=== PATIENT | female | born 1950 | race Caucasian/White ===

== ENCOUNTER 2016-05-13 09:43 | Outpatient (CLI) | payer MEDICARE, OTHER | END 2016-05-13 09:44 | disposition home or self-care (01) | DX: E11.9 Type 2 diabetes mellitus without complications (principal); D64.9 Anemia, unspecified ==

== ENCOUNTER 2016-07-12 12:58 | Outpatient (CLI) | payer MEDICARE, OTHER | END 2016-07-12 12:59 | disposition home or self-care (01) | DX: M85.88 Other specified disorders of bone density and structure, other site (principal) ==

== ENCOUNTER 2016-07-12 13:00 | Outpatient (CLI) | payer MEDICARE, OTHER | END 2016-07-12 13:01 | disposition home or self-care (01) | DX: Z12.31 Encounter for screening mammogram for malignant neoplasm of breast (principal) ==

== ENCOUNTER 2016-07-12 16:57 | Outpatient (CLI) | payer MEDICARE, OTHER | END 2016-07-12 16:58 | disposition home or self-care (01) | DX: N84.1 Polyp of cervix uteri (principal); M85.88 Other specified disorders of bone density and structure, other site; Z78.0 Asymptomatic menopausal state ==

== ENCOUNTER 2016-08-28 15:29 | Outpatient (CLI) | payer MEDICARE, OTHER | END 2016-08-28 15:30 | disposition home or self-care (01) | DX: S83.242A Other tear of medial meniscus, current injury, left knee, initial encounter (principal); M17.12 Unilateral primary osteoarthritis, left knee; M25.762 Osteophyte, left knee ==

== ENCOUNTER 2016-10-31 14:50 | Outpatient (CLI) | payer MEDICARE, OTHER ==
[2016-10-31 19:42] LABS: CALCIUM 9.4 mg/dL (8.5-10.3); POTASSIUM 4.4 mmol/L (3.5-5.0)
[2016-10-31 20:11] LABS: HEMOGLOBIN A1C 0.62 g/dL
== END 2016-10-31 14:51 | disposition home or self-care (01) ==
LOC: LAB.WCP 14:50
PROVIDERS: ATTEND Physician Assistant Medical
DX: E11.9 Type 2 diabetes mellitus without complications (principal)
CPT/HCPCS: 36415; 80048; 83036

== ENCOUNTER 2017-01-29 13:55 | Outpatient (CLI) | payer MEDICARE, OTHER | END 2017-01-29 13:56 | disposition home or self-care (01) | LOC: LAB.WCP 13:55 | PROVIDERS: ATTEND Physician Assistant Medical | DX: N39.0 Urinary tract infection, site not specified (principal) | CPT/HCPCS: 87086 ==

== ENCOUNTER 2017-06-09 08:00 | Outpatient (CLI) | payer MEDICARE, OTHER ==
[2017-06-09 19:53] LABS: BASOPHILS % (AUTO) 0.3 %; EOSINOPHILS # (AUTO) 0.2 10^3/uL (0.0-0.7); EOSINOPHILS % (AUTO) 2.1 %; HGB - HEMOGLOBIN 12.8 g/dL (12.0-16.0); LYMPHOCYTES % (AUTO) 27.1 %; MEAN CORPUSCULAR HEMOGLOBIN 27.5 pg (27.0-31.0); MEAN CORPUSCULAR HGB CONC 31.9 g/dL (32.0-36.0); MEAN CORPUSCULAR VOLUME 86.3 fL (81.0-99.0); MONOCYTES # (AUTO) 0.4 10^3/uL (0.0-1.0); MONOCYTES % (AUTO) 5.5 %; NEUTROPHILS # (AUTO) 4.8 10^3/uL (1.5-6.6); PLT - PLATELET COUNT 198 10^3/uL (130-450); RED BLOOD COUNT 4.66 10^6/uL (4.20-5.40); RED CELL DISTRIBUTION WIDTH 13.2 % (12.0-15.0); WHITE BLOOD COUNT 7.4 x10^3/uL (4.8-10.8)
[2017-06-09 20:24] LABS: ALBUMIN/GLOBULIN RATIO 1.3 (1.0-2.2); ALKALINE PHOSPHATASE 51 IU/L (42-121); ALT ALANINE AMINOTRANSFERASE 15 IU/L (10-60); AST ASPARTATE AMINOTRANSFERASE 22 IU/L (10-42); BILIRUBIN,TOTAL 0.4 mg/dL (0.2-1.0); BUN - BLOOD UREA NITROGEN 17 mg/dL (6-20); CALCIUM 9.1 mg/dL (8.5-10.3); CARBON DIOXIDE - CO2 29 mmol/L (21-32); CHLORIDE 104 mmol/L (101-111); CHOL/HDL RATIO 2.3 (<4.4); CHOLESTEROL 141 mg/dL; GFR - MDRD 56 (>89); GLUCOSE 97 mg/dL (70-100); HDL CHOLESTEROL 61 mg/dL; LDL CHOLESTEROL,CALCULATED 64 mg/dL; SODIUM 139 mmol/L (135-145); TOTAL PROTEIN 7.1 g/dL (6.7-8.2); VLDL CHOLESTEROL 16 mg/dL
[2017-06-09 20:57] LABS: HEMOGLOBIN A1C 0.6 g/dL; HEMOGLOBIN A1C % 6.1 % (4.6-6.2)
== END 2017-06-09 08:01 | disposition home or self-care (01) ==
LOC: LAB.WCP 08:00
PROVIDERS: ATTEND Physician Assistant Medical
DX: E11.9 Type 2 diabetes mellitus without complications (principal); K21.9 Gastro-esophageal reflux disease without esophagitis
CPT/HCPCS: 36415; 80053; 80061; 82043; 83036; 83721; 85025

== ENCOUNTER 2017-06-17 08:00 | Outpatient (CLI) | payer MEDICARE, OTHER | END 2017-06-17 08:01 | disposition home or self-care (01) | LOC: LAB.R 08:00 | PROVIDERS: ATTEND Physician Assistant Medical | DX: N39.0 Urinary tract infection, site not specified (principal) | CPT/HCPCS: 87077; 87086 ==

== ENCOUNTER 2017-09-09 08:00 | Outpatient (CLI) | payer MEDICARE, OTHER | END 2017-09-09 08:01 | disposition home or self-care (01) | LOC: LAB.R 08:00 | PROVIDERS: ATTEND Physician Assistant Medical | DX: N39.0 Urinary tract infection, site not specified (principal) | CPT/HCPCS: 87086 ==

== ENCOUNTER 2017-09-18 17:32 | Emergency (ER) | payer MEDICARE, OTHER ==
[2017-09-18 17:41] VITALS: BP 165/96
--- NOTE | 2017-09-18 18:39 | ED Physician Documentation ---
PD HPI LOWER EXT INJURY - Stated complaint Stated Complaint: R LEG PX - Chief complaint Chief Complaint: Ext Problem - History obtained from History obtained from: Patient - History of Present Illness PD HPI LOW EXT INJURY LOCATION: Other (Without specific injury or recent travel to 66-year-old woman with no history of DVT or PE presents with 4-5 days of somewhat painful calf pain and foot swelling on the right. There is no associated chest pain or trouble breathing.) Review of Systems Constitutional: denies: Fever, Chills Cardiac: denies: Chest pain / pressure, Palpitations Respiratory: denies: Dyspnea, Cough PD PAST MEDICAL HISTORY - Past Medical History Cardiovascular: Hypertension, High cholesterol Respiratory: Asthma, Sleep apnea, CPAP use Endocrine/Autoimmune: Type 2 diabetes GI: GERD, Colon polyps, Hepatitis Psych: Depression, Panic attacks, ADD/ADHD, Claustrophobia Musculoskeletal: Fibromyalgia - Past Surgical History General: Cholecystectomy Ortho: Shoulder arthroplasty, Other HEENT: Tonsil/Adenoidectomy - Present Medications Home Medications: Ambulatory Orders Medication Instructions Recorded Confirmed Albuterol Oral Soln 2 mg PO Q6H PRN 10/08/16 09/18/17 Albuterol Sulf [Ventolin Hfa 1 - 2 puffs INH Q4HR PRN 10/08/16 09/18/17 Inhaler] Albuterol Sulfate [Proair Hfa 1 - 2 puffs INH Q4H PRN 10/08/16 09/18/17 Inhaler] Amlodipine Besylate 5 mg PO DAILY 10/08/16 09/18/17 Calcium Carbonate/Vitamin D3 1 each PO DAILY 10/08/16 09/18/17 [Calcium 600 + Vit D 400 Tablet] Celecoxib [Celebrex] 200 mg PO DAILY 10/08/16 09/18/17 Epinephrine [Epipen 2-Keny] 0.3 mg IJ ONCE PRN 10/08/16 09/18/17 Fluticasone [Flonase] 1 sprays LEON DAILY 10/08/16 09/18/17 Fluticasone/Salmeterol [Advair 1 each IH BID 10/08/16 09/18/17 250-50 Diskus] Ipratropium/Albuterol [Combivent 4 gm IH QID 10/08/16 09/18/17 Respimat] Lisinopril 40 mg PO DAILY 10/08/16 09/18/17 Metformin HCl [Glucophage Xr] 750 mg PO BID 10/08/16 09/18/17 Montelukast [Singulair] 10 mg PO QPM 10/08/16 09/18/17 Oxycodone HCl [Oxycontin] 20 mg PO BID 10/08/16 09/18/17 Rizatriptan Benzoate [Maxalt Security Orderly] 10 mg PO ONCE PRN 10/08/16 09/18/17 Simvastatin [Zocor] 20 mg PO DAILY 10/08/16 09/18/17 Zolpidem Tartrate [Ambien] 10 mg PO DAILY PRN 10/08/16 09/18/17 Omeprazole 1 tab PO DAILY 09/18/17 09/18/17 Rivaroxaban [Xarelto] 15 mg PO BID #42 tablet 09/18/17 - Allergies Allergies/Adverse Reactions: Allergies Allergy/AdvReac Type Severity Reaction Status Date / Time bee venom protein (honey bee) Allergy Anaphylaxis Unverified 09/18/17 18:38 Iodinated Contrast- Oral and Allergy Unknown Unverified 09/18/17 18:38 IV Dye [Iodinated Contrast Media - Oral and] levofloxacin [From Levaquin] Allergy Unknown Unverified 09/18/17 18:38 Sulfa (Sulfonamide AdvReac Unknown Unverified 09/18/17 18:38 Antibiotics) - Social History Does the pt drink ETOH?: No Does the pt have substance abuse?: No - Family History Family history: reports: Non contributory PD ED PE NORMAL - Vitals Vital signs reviewed: Yes - General General: Alert and oriented X 3, No acute distress - HEENT HEENT: PERRL, EOMI - Cardiac Cardiac: RRR, No murmur - Respiratory Respiratory: No respiratory distress, Clear bilaterally - Abdomen Abdomen: Non tender - Extremities Extremities: Other (She has marked asymmetric edema of the right leg up to the mid calf but not further, there is no popliteal or thigh tenderness. Good pedal pulses and perfusion.) - Neuro Neuro: Alert and oriented X 3, Normal speech Results - Vitals Vitals: Vital Signs - 24 hr 09/18/17 17:39 Temperature 36.6 C Heart Rate 99 Respiratory 16 Rate Blood Pressure 165/96 H O2 Saturation 99 Oxygen O2 Source Room air - Labs Labs: Laboratory Tests 09/18/17 09/18/17 09/18/17 18:46 18:46 18:46 WBC 6.7 RBC 4.24 Hgb 11.8 L Hct 37.1 MCV 87.3 MCH 27.9 MCHC 32.0 RDW 13.8 Plt Count 194 MPV 7.8 L Neut # 4.4 Lymph # 1.8 Metcalfe # 0.4 Eos # 0.2 Baso # 0.0 Absolute Nucleated RBC 0.00 Nucleated RBC % 0.0 PT 12.4 INR 1.1 Sodium 137 Potassium 4.3 Chloride 102 Carbon Dioxide 28 Anion Gap 7.0 BUN 19 Creatinine 0.7 Estimated GFR (MDRD) 84 L Glucose 137 H Calcium 9.3 - Rads (name of study) RLE DVt scna Radiology: EMP read contemporaneously (Positive DVT in the right popliteal and PT V.) PD MEDICAL DECISION MAKING - ED course ED course: This is a 66-year-old woman with unprovoked right lower extremity DVT. Spoke with NA Waggoner transportation economics teacher for her NA Ross and agreed on Xarelto. She will need hypercoagulable and malignancy workup given that it was unprovoked. Departure - Departure Disposition: Home, Self Care Clinical Impression: Right leg DVT Qualifiers: Affected thrombotic vein of extremity: popliteal Chronicity: acute Qualified Code(s): I82.431 - Acute embolism and thrombosis of right popliteal vein Condition: Good Record reviewed to determine appropriate education?: Yes Instructions: ED DVT, Rivaroxaban oral tablets Prescriptions: Rivaroxaban [Xarelto] 15 mg PO BID #42 tablet Comments: Follow-up with NA Ross, she will need to write you a prescription for ongoing Xarelto after the first 3 weeks, after the first 3 weeks it is only once a day. She will also likely want to do further testing to see why you had this unprovoked DVT.
[2017-09-18 19:02] LABS: BASOPHILS % (AUTO) 0.3 %; EOSINOPHILS # (AUTO) 0.2 10^3/uL (0.0-0.7); EOSINOPHILS % (AUTO) 2.9 %; HGB - HEMOGLOBIN 11.8 g/dL (12.0-16.0); LYMPHOCYTES # (AUTO) 1.8 10^3/uL (1.5-3.5); MEAN CORPUSCULAR HEMOGLOBIN 27.9 pg (27.0-31.0); MEAN CORPUSCULAR VOLUME 87.3 fL (81.0-99.0); MEAN PLATELET VOLUME 7.8 fL (7.9-10.8); MONOCYTES # (AUTO) 0.4 10^3/uL (0.0-1.0); MONOCYTES % (AUTO) 5.7 %; NEUTROPHILS # (AUTO) 4.4 10^3/uL (1.5-6.6); NEUTROPHILS % (AUTO) 65.1 %; PLT - PLATELET COUNT 194 10^3/uL (130-450); RED BLOOD COUNT 4.24 10^6/uL (4.20-5.40); RED CELL DISTRIBUTION WIDTH 13.8 % (12.0-15.0); WHITE BLOOD COUNT 6.7 x10^3/uL (4.8-10.8)
[2017-09-18 19:07] LABS: CALCIUM 9.3 mg/dL (8.5-10.3); CREATININE 0.7 mg/dL (0.4-1.0)
[2017-09-18 19:08] LABS: INR 1.1 (0.8-1.2); PT - PROTHROMBIN TIME 12.4 secs (9.9-12.6)
[2017-09-18] MEDS ORDERED: RIVAROXABAN 15 MG TABLET PO STA (19:59)
--- NOTE | 2017-09-18 20:20 | Ultrasound Preliminary Report ---
Exam: US DUPLEX EXT VEINS RIGHT IMPRESSION: 1. Study limited by body habitus. 2. Nonocclusive thrombus in the right posterior tibial and mid and proximal popliteal vein. Occlusive thrombus in the distal popliteal vein. 3. Soft tissue edema in the right leg noted. RADIA The above findings were discussed with MIGUEL A Cee by Dr. Melyssa No at 20:19 hrs on 09/18/17. SITE ID: [id number]
--- NOTE | 2017-09-18 21:12 | Ultrasound Report ---
EXAM: RIGHT LOWER EXTREMITY VENOUS ULTRASOUND EXAM DATE: 09/18/2017 07:16 PM. CLINICAL HISTORY: Leg swelling. COMPARISON: None. TECHNIQUE: Real-time sonographic vascular imaging was performed by the drink mixer through the lower extremity utilizing both color-flow and Doppler spectral analysis. Multiple sales representative supervisor static giuliana ges were saved for review. FINDINGS: Common Femoral Vein (CFV): Normal. CFV-GSV Junction: Normal. Profunda Femoral Vein (PFV): Normal. Femoral Vein (FV) Prox: Normal. Femoral Vein (FV) Mid: Not well seen. Femoral Vein (FV) Dist: Not well seen. Popliteal Vein: Nonocclusive thrombus in the mid to proximal segment of the popliteal vein. Distal po pliteal vein occlusion. Nonocclusive thrombus in the proximal to mid right posterior tibial vein. Per [place] veins are not seen. Posterior Tibial Veins: Normal. Peroneal Veins: Normal. Contralateral Side CFV: Normal. Other: Study is limited due to body habitus and edema. IMPRESSION: 1. Study limited by body habitus. 2. Nonocclusive thrombus in the right posterior tibial and mid and proximal popliteal vein. Occlusive thrombus in the distal popliteal vein. 3. Soft tissue edema in the right leg noted. RADIA The above findings were discussed with MIGUEL A Cee by Dr. Melyssa No at 20:19 hrs on 09/18/17. Referring Provider Line: [phone] SITE ID: [id number]
== END 2017-09-18 20:19 | disposition home or self-care (01) ==
LOC: ED 17:32
DX: I82.441 Acute embolism and thrombosis of right tibial vein (principal); I82.431 Acute embolism and thrombosis of right popliteal vein; I10 Essential (primary) hypertension; E11.9 Type 2 diabetes mellitus without complications; Z79.84 Long term (current) use of oral hypoglycemic drugs
CPT/HCPCS: 36415; 80048; 85025; 85610; 93971; 99283; 99284; A9270

== ENCOUNTER 2017-10-13 08:00 | Outpatient (CLI) | payer MEDICARE, OTHER ==
[2017-10-13 19:43] LABS: BASOPHILS % (AUTO) 0.4 %; EOSINOPHILS # (AUTO) 0.2 10^3/uL (0.0-0.7); EOSINOPHILS % (AUTO) 2.3 %; HGB - HEMOGLOBIN 12.2 g/dL (12.0-16.0); LYMPHOCYTES # (AUTO) 2.3 10^3/uL (1.5-3.5); LYMPHOCYTES % (AUTO) 32.1 %; MEAN CORPUSCULAR HEMOGLOBIN 28.5 pg (27.0-31.0); MEAN CORPUSCULAR HGB CONC 31.8 g/dL (32.0-36.0); MEAN CORPUSCULAR VOLUME 89.4 fL (81.0-99.0); MEAN PLATELET VOLUME 9.4 fL (7.9-10.8); MONOCYTES # (AUTO) 0.5 10^3/uL (0.0-1.0); MONOCYTES % (AUTO) 6.5 %; NEUTROPHILS # (AUTO) 4.3 10^3/uL (1.5-6.6); NEUTROPHILS % (AUTO) 58.7 %; PLT - PLATELET COUNT 218 10^3/uL (130-450); RED BLOOD COUNT 4.29 10^6/uL (4.20-5.40); RED CELL DISTRIBUTION WIDTH 13.7 % (12.0-15.0); WHITE BLOOD COUNT 7.3 x10^3/uL (4.8-10.8)
[2017-10-13 19:56] LABS: ALBUMIN 3.7 g/dL (3.2-5.5); ALBUMIN/GLOBULIN RATIO 1.1 (1.0-2.2); BILIRUBIN,TOTAL 0.4 mg/dL (0.2-1.0); CREATININE 1.1 mg/dL (0.4-1.0); TOTAL PROTEIN 7.2 g/dL (6.7-8.2)
== END 2017-10-13 08:01 | disposition home or self-care (01) ==
LOC: LAB.WCP 08:00
PROVIDERS: ATTEND Physician Assistant
DX: N39.0 Urinary tract infection, site not specified (principal)
CPT/HCPCS: 36415; 80053; 85025; 87077; 87086; 87181

== ENCOUNTER 2018-01-06 17:11 | Outpatient (CLI) | payer MEDICARE, OTHER | END 2018-01-06 17:12 | LOC: LAB.R 17:11 | PROVIDERS: ATTEND Physician Assistant Medical | DX: N39.0 Urinary tract infection, site not specified (principal) | CPT/HCPCS: 87086 ==

== ENCOUNTER 2018-07-01 13:57 | Outpatient (CLI) | payer MEDICARE, OTHER ==
[2018-07-01 19:25] LABS: HB2 TOTAL 13.6 g/dL; HEMOGLOBIN A1C 0.53 g/dL; HEMOGLOBIN A1C % 5.7 % (4.6-6.2)
[2018-07-01 19:27] LABS: CHOL/HDL RATIO 2.4 (<4.4); CHOLESTEROL 164 mg/dL; HDL CHOLESTEROL 68 mg/dL; LDL CHOLESTEROL,CALCULATED 78 mg/dL; LDL/HDL RATIO 1.1 (<4.4); VLDL CHOLESTEROL 18 mg/dL
== END 2018-07-01 13:58 | disposition home or self-care (01) ==
LOC: LAB.WCP 13:57
PROVIDERS: ATTEND Physician Assistant Medical
DX: E78.5 Hyperlipidemia, unspecified (principal); E11.9 Type 2 diabetes mellitus without complications
CPT/HCPCS: 36415; 80061; 83036; 83721

== ENCOUNTER 2018-11-12 14:15 | Emergency (ER) | payer MEDICARE, OTHER ==
[2018-11-12 14:25] VITALS: BP 143/87
--- NOTE | 2018-11-12 16:10 | XRAY Report ---
Reason: fall, back pain Procedure Date: 11/12/2018 Accession Number: [id number] / [id number] Procedure: XR - Lumbar Spine 2 View CPT Code: FULL RESULT: EXAM: LUMBOSACRAL SPINE RADIOGRAPHY EXAM DATE: 11/12/2018 03:52 PM. CLINICAL HISTORY: Fall, back pain. COMPARISONS: None. TECHNIQUE: 3 views. FINDINGS: Bones: No fractures or bone lesions. Facets: Bilateral facet arthropathy from L3-S1 levels. Degenerative grade 1 anterolisthesis of L4 over L5. Intervertebral spacing device is seen at L5-S1. Sacroiliac Joints: Unremarkable. Soft Tissues: Normal. The visualized bowel gas pattern is normal. IMPRESSION: No acute displaced fracture, no vertebral body height loss. Grade 1 degenerative anterolisthesis of L4 over L5. RADIA
--- NOTE | 2018-11-12 16:12 | XRAY Report ---
Reason: fall, back pain Procedure Date: 11/12/2018 Accession Number: [id number] / [id number] Procedure: XR - Thoracic Spine 2 View CPT Code: FULL RESULT: EXAM: THORACIC SPINE RADIOGRAPHY EXAM DATE: 11/12/2018 03:52 PM. CLINICAL HISTORY: Fall, back pain. COMPARISON: None. TECHNIQUE: 2 views. FINDINGS: Alignment: Normal. No spondylolisthesis or scoliosis. Bones: No fractures or bone lesions. Disks: Normal. Disk heights are maintained. Soft Tissues: Normal. The visualized lungs and cardiomediastinal silhouette are normal. IMPRESSION: Well aligned thoracic spine with no acute displaced fracture. No vertebral body height loss. RADIA
[2018-11-12] MEDS ORDERED: CHERRY SYRUP 10 ML UDC PO ONE (18:00)
[2018-11-12] MEDS ORDERED: DEXAMETHASONE 10 MG/ML VIAL PO STA (18:00)
[2018-11-12] MEDS ORDERED: KETOROLAC 60 MG/2 ML VIAL IM STA (18:00)
--- NOTE | 2018-11-12 18:03 | ED Physician Documentation ---
PD HPI BACK PAIN - Stated complaint Stated Complaint: BACK/HIP PX - Chief complaint Chief Complaint: Back Pain - History obtained from History obtained from: Patient, Family - History of Present Illness Timing - onset: How many weeks ago (2) Timing - duration: Weeks (2) Timing - details: Gradual onset, Still present Location: Lower, Right Quality: Pain, Spasm, Sharp Associated symptoms: No: Fever, Weakness, Numbness, Incontinent of urine, Unable to urinate, Hematuria, Incontinent of stool Improves with: Rest, Position, Meds Worsened by: Movement, Lifting Similar symptoms before: Diagnosis (lumbar pain) Recently seen: Not recently seen - Additional information Additional information: 67-year-old female with a prior history of lumbar disc disease fell about 5 feet from a ladder about 2 weeks ago. She fell onto her right side and onto her back. About 1 week ago she began to have pain radiating from her back around to her groin. She denied any saddle anesthesia denies any difficulty with her bowel or bladder. She has had pain into the right hip which is especially a concern when she bears weight. Review of Systems Constitutional: denies: Fever Nose: denies: Congestion Throat: denies: Sore throat Cardiac: denies: Chest pain / pressure Respiratory: denies: Dyspnea, Cough GI: denies: Abdominal Pain, Nausea, Vomiting : denies: Dysuria PD PAST MEDICAL HISTORY - Past Medical History Past Medical History: No Cardiovascular: Hypertension, High cholesterol Respiratory: Asthma, Sleep apnea, CPAP use Neuro: None Endocrine/Autoimmune: Type 2 diabetes GI: GERD, Colon polyps, Hepatitis SKIVER HEEL TAP: None HEENT: None Psych: Depression, Panic attacks, ADD/ADHD, Claustrophobia Musculoskeletal: Fibromyalgia - Past Surgical History Past Surgical History: Yes General: Cholecystectomy Ortho: Shoulder arthroplasty, Other HEENT: Tonsil/Adenoidectomy - Present Medications Home Medications: Ambulatory Orders Medication Instructions Recorded Confirmed Albuterol Oral Soln 2 mg PO Q6H PRN 10/08/16 09/18/17 Albuterol Sulf [Ventolin Hfa 1 - 2 puffs INH Q4HR PRN 10/08/16 09/18/17 Inhaler] Albuterol Sulfate [Proair Hfa 1 - 2 puffs INH Q4H PRN 10/08/16 09/18/17 Inhaler] Amlodipine Besylate 5 mg PO DAILY 10/08/16 09/18/17 Calcium Carbonate/Vitamin D3 1 each PO DAILY 10/08/16 09/18/17 [Calcium 600 + Vit D 400 Tablet] Celecoxib [Celebrex] 200 mg PO DAILY 10/08/16 09/18/17 EPINEPHrine [Epipen 2-Keny] 0.3 mg IJ ONCE PRN 10/08/16 09/18/17 Fluticasone [Flonase] 1 sprays LEON DAILY 10/08/16 09/18/17 Fluticasone/Salmeterol [Advair 1 each IH BID 10/08/16 09/18/17 250-50 Diskus] Ipratropium/Albuterol [Combivent 4 gm IH QID 10/08/16 09/18/17 Respimat] Lisinopril 40 mg PO DAILY 10/08/16 09/18/17 Metformin HCl [Glucophage Xr] 750 mg PO BID 10/08/16 09/18/17 Montelukast [Singulair] 10 mg PO QPM 10/08/16 09/18/17 Oxycodone HCl [Oxycontin] 20 mg PO BID 10/08/16 09/18/17 Rizatriptan Benzoate [Maxalt Carpenter Maintenance] 10 mg PO ONCE PRN 10/08/16 09/18/17 Simvastatin [Zocor] 20 mg PO DAILY 10/08/16 09/18/17 Zolpidem Tartrate [Ambien] 10 mg PO DAILY PRN 10/08/16 09/18/17 Omeprazole 1 tab PO DAILY 09/18/17 09/18/17 Rivaroxaban [Xarelto] 15 mg PO BID #42 tablet 09/18/17 Cyclobenzaprine [Flexeril] 10 mg PO TID PRN #20 tablet 11/12/18 Hydrocodone/Acetaminophen 1 - 2 each PO Q6H PRN #14 tablet 11/12/18 [Hydrocodon-Acetaminophen 5-325] - Allergies Allergies/Adverse Reactions: Allergies Allergy/AdvReac Type Severity Reaction Status Date / Time bee venom protein (honey bee) Allergy Anaphylaxis Verified 11/12/18 14:25 Iodinated Contrast- Oral and Allergy Unknown Verified 11/12/18 14:25 IV Dye [Iodinated Contrast Media - Oral and] levofloxacin [From Levaquin] Allergy Unknown Verified 11/12/18 14:25 Sulfa (Sulfonamide AdvReac Unknown Verified 11/12/18 14:25 Antibiotics) - Social History Does the pt smoke?: No Smoking Status: Never smoker Does the pt drink ETOH?: No Does the pt have substance abuse?: No - Immunizations Immunizations are current?: Yes - POLST Patient has POLST: No PD ED PE NORMAL - Vitals Vital signs reviewed: Yes (hypertensive) - General General: Alert and oriented X 3, Well developed/nourished, Other (apears to be in pain staying off of the right hip ) - HEENT HEENT: Atraumatic, PERRL - Neck Neck: Supple, no meningeal sign - Respiratory Respiratory: No respiratory distress - Back Back: No CVA TTP, No spinal TTP, Other (There is some tenderness to the paraspinous muscles to the right lower lumbar spine extending in the sciatic notch and around to the front. ) - Derm Derm: Normal color, Warm and dry, No rash - Extremities Extremities: No deformity, No edema - Neuro Neuro: Alert and oriented X 3, program administrator 2-12 intact, No motor deficit, No sensory deficit, Normal speech Eye Opening: Spontaneous Motor: Obeys Commands Verbal: Oriented GCS Score: 15 - Psych Psych: Normal mood, Normal affect Results - Vitals Vitals: Vital Signs - 24 hr 11/12/18 14:19 Temperature 36.4 C L Heart Rate 78 Respiratory 19 Rate Blood Pressure 143/87 H O2 Saturation 97 Oxygen O2 Source Room air - Rads (name of study) lumbar spine Radiology: Prelim report reviewed (Impression: No acute displaced fracture no vertebral body height loss. Grade 1 degenerative anterolisthesis of L4 over L5), EMP read indepedently, See rad report thoracic spine Radiology: Prelim report reviewed (Impression: Well aligned thoracic spine with no acute displaced fracture. No vertebral body height loss.), EMP read indepedently, See rad report hip Radiology: EMP read indepedently (no obvious fracture) PD MEDICAL DECISION MAKING - ED course Complexity details: reviewed old records, reviewed results, re-evaluated patient, considered differential, d/w patient ED course: 67-year-old female with a remote fall and pain in the right hip appears to have referred pain from her back and she is administered dexamethasone and Toradol we will will place her on some pain medication a muscle relaxant and we have obtained a picture of her hip as this appears to be the area she has the most pain. She has no evidence of compression fracture on x-ray examination of her lumbar and thoracic spine. Departure - Departure Disposition: 01 Home, Self Care Clinical Impression: Sciatica Qualifiers: Laterality: right Qualified Code(s): M54.31 - Sciatica, right side Condition: Stable Instructions: ED Sciatica Follow-Up: Becki Ross PA-C [Primary Care Provider] - Prescriptions: Cyclobenzaprine [Flexeril] 10 mg PO TID PRN #20 tablet PRN Reason: Spasms Hydrocodone/Acetaminophen [Hydrocodon-Acetaminophen 5-325] 1 - 2 each PO Q6H PRN #14 tablet PRN Reason: pain
--- NOTE | 2018-11-12 18:49 | XRAY Report ---
Reason: fall hip pain Procedure Date: 11/12/2018 Accession Number: [id number] / [id number] Procedure: XR - Hip w/Pelvis 2-3V RT CPT Code: FULL RESULT: EXAM: PELVIS AND RIGHT HIP RADIOGRAPHY EXAM DATE: 11/12/2018 06:16 PM. CLINICAL HISTORY: Fall hip pain. COMPARISON: None. TECHNIQUE: Pelvis and right hip, each 1 view. FINDINGS: Bones: Normal. No fractures or bone lesion. Postoperative changes at the lumbosacral level. Joints: Normal. No dislocation. The hip joint space is preserved. Soft Tissues: Unremarkable. IMPRESSION: No acute disease. RADIA
== END 2018-11-12 18:50 | disposition home or self-care (01) ==
LOC: ED 14:15
DX: M54.31 Sciatica, right side (principal); I10 Essential (primary) hypertension; E11.9 Type 2 diabetes mellitus without complications; Z79.84 Long term (current) use of oral hypoglycemic drugs
CPT/HCPCS: 72070; 72100; 73502; 96372; 99284; A9270

== ENCOUNTER 2018-12-08 13:41 | Outpatient (CLI) | payer MEDICARE, OTHER ==
[2018-12-08 19:15] LABS: BASOPHILS % (AUTO) 0.4 %; EOSINOPHILS # (AUTO) 0.3 10^3/uL (0.0-0.7); EOSINOPHILS % (AUTO) 4.3 %; HGB - HEMOGLOBIN 12.2 g/dL (12.0-16.0); LYMPHOCYTES # (AUTO) 1.7 10^3/uL (1.5-3.5); LYMPHOCYTES % (AUTO) 24.7 %; MEAN CORPUSCULAR HEMOGLOBIN 28.6 pg (27.0-31.0); MEAN CORPUSCULAR HGB CONC 31.3 g/dL (32.0-36.0); MEAN CORPUSCULAR VOLUME 91.5 fL (81.0-99.0); MONOCYTES # (AUTO) 0.4 10^3/uL (0.0-1.0); NEUTROPHILS # (AUTO) 4.4 10^3/uL (1.5-6.6); NEUTROPHILS % (AUTO) 64.2 %; PLT - PLATELET COUNT 213 10^3/uL (130-450); RED BLOOD COUNT 4.26 10^6/uL (4.20-5.40); RED CELL DISTRIBUTION WIDTH 12.7 % (12.0-15.0); WHITE BLOOD COUNT 6.8 x10^3/uL (4.8-10.8)
[2018-12-08 19:38] LABS: ALBUMIN 3.8 g/dL (3.2-5.5); ALBUMIN/GLOBULIN RATIO 1.1 (1.0-2.2); ALKALINE PHOSPHATASE 51 IU/L (42-121); ALT ALANINE AMINOTRANSFERASE 14 IU/L (10-60); AST ASPARTATE AMINOTRANSFERASE 17 IU/L (10-42); BILIRUBIN,TOTAL 0.5 mg/dL (0.2-1.0); BUN - BLOOD UREA NITROGEN 23 mg/dL (6-20); CALCIUM 9.4 mg/dL (8.5-10.3); CARBON DIOXIDE - CO2 26 mmol/L (21-32); CHLORIDE 103 mmol/L (101-111); CHOL/HDL RATIO 2.6 (<4.4); CHOLESTEROL 150 mg/dL; CREATININE 0.9 mg/dL (0.4-1.0); GFR - MDRD 63 (>89); GLUCOSE 102 mg/dL (70-100); HDL CHOLESTEROL 58 mg/dL; LDL CHOLESTEROL,CALCULATED 72 mg/dL; LDL/HDL RATIO 1.2 (<4.4); SODIUM 142 mmol/L (135-145); TOTAL PROTEIN 7.3 g/dL (6.7-8.2); VLDL CHOLESTEROL 20 mg/dL
[2018-12-08 20:18] LABS: HEMOGLOBIN A1C 0.59 g/dL; HEMOGLOBIN A1C % 6.3 % (4.6-6.2)
== END 2018-12-08 23:59 | disposition home or self-care (01) ==
LOC: LAB.WCP 13:41
PROVIDERS: ATTEND Physician Assistant Medical
DX: I10 Essential (primary) hypertension (principal); E11.9 Type 2 diabetes mellitus without complications
CPT/HCPCS: 36415; 80053; 80061; 83036; 83721; 84443; 85025

== ENCOUNTER 2018-12-14 14:41 | Outpatient (CLI) | payer MEDICARE, OTHER ==
[2018-12-14 18:41] LABS: BASOPHILS % (AUTO) 0.4 %; EOSINOPHILS # (AUTO) 0.2 10^3/uL (0.0-0.7); EOSINOPHILS % (AUTO) 2.2 %; HGB - HEMOGLOBIN 12.8 g/dL (12.0-16.0); LYMPHOCYTES # (AUTO) 2.1 10^3/uL (1.5-3.5); LYMPHOCYTES % (AUTO) 21.6 %; MEAN CORPUSCULAR HEMOGLOBIN 27.6 pg (27.0-31.0); MEAN CORPUSCULAR HGB CONC 30.2 g/dL (32.0-36.0); MEAN CORPUSCULAR VOLUME 91.4 fL (81.0-99.0); MEAN PLATELET VOLUME 10.7 fL (7.9-10.8); MONOCYTES # (AUTO) 0.5 10^3/uL (0.0-1.0); MONOCYTES % (AUTO) 5.2 %; NEUTROPHILS # (AUTO) 6.9 10^3/uL (1.5-6.6); PLT - PLATELET COUNT 263 10^3/uL (130-450); RED BLOOD COUNT 4.64 10^6/uL (4.20-5.40); RED CELL DISTRIBUTION WIDTH 12.8 % (12.0-15.0); WHITE BLOOD COUNT 9.9 x10^3/uL (4.8-10.8)
[2018-12-14 19:59] LABS: % IRON SATURATION 12 % (20-50); IRON 49 ug/dL (28-170); TOTAL IRON BINDING CAPACITY 396 ug/dL (250-450); TRANSFERRIN 283 mg/dL (192-382)
== END 2018-12-14 23:59 | disposition home or self-care (01) ==
LOC: LAB.WCP 14:41
PROVIDERS: ATTEND Physician Assistant Medical
DX: K62.5 Hemorrhage of anus and rectum (principal)
CPT/HCPCS: 36415; 82728; 83540; 84466; 85025

== ENCOUNTER 2019-01-01 08:00 | Outpatient (CLI) | payer MEDICARE, OTHER | END 2019-01-01 23:59 | disposition home or self-care (01) | LOC: LAB.WCP 08:00 | PROVIDERS: ATTEND Physician Assistant Medical | DX: Z53.9 Procedure and treatment not carried out, unspecified reason (principal) ==

== ENCOUNTER 2019-03-12 13:50 | Outpatient (CLI) | payer MEDICARE, OTHER ==
[2019-03-12 19:38] LABS: CALCIUM 9.1 mg/dL (8.5-10.3)
[2019-03-12 19:58] LABS: HB2 TOTAL 12.1 g/dL; HEMOGLOBIN A1C 0.48 g/dL; HEMOGLOBIN A1C % 5.8 % (4.6-6.2)
== END 2019-03-12 23:59 | disposition home or self-care (01) ==
LOC: LAB.WCP 13:50
PROVIDERS: ATTEND Physician Assistant Medical
DX: E11.9 Type 2 diabetes mellitus without complications (principal)
CPT/HCPCS: 36415; 80048; 83036

== ENCOUNTER 2019-03-15 14:40 | Outpatient (CLI) | payer MEDICARE, OTHER | END 2019-03-15 23:59 | disposition home or self-care (01) | LOC: LAB.WCP 14:40 | PROVIDERS: ATTEND Physician Assistant Medical | DX: E11.9 Type 2 diabetes mellitus without complications (principal) | CPT/HCPCS: 36415; 84443 ==

== ENCOUNTER 2019-03-15 15:13 | Outpatient (CLI) | payer MEDICARE, OTHER ==
--- NOTE | 2019-03-15 16:18 | XRAY Report ---
Reason: LEFT SHOULDER IMPINGEMENT SYNDROME Procedure Date: 03/15/2019 Accession Number: [id number] / [id number] Procedure: WCP - Shoulder 2 View LT CPT Code: Final Report FULL RESULT: EXAM: LEFT SHOULDER RADIOGRAPHY EXAM DATE: 03/15/2019 03:13 PM. CLINICAL HISTORY: Left shoulder impingement syndrome. COMPARISON: None. TECHNIQUE: 2 views. FINDINGS: Bones: There has been prior arthroplasty of the left shoulder with a long stem humeral component. There is degenerative widening and sclerosis of the adjacent glenoid. Joints: Glenohumeral joint remains located. The acromioclavicular joint appears normal. Slightly down sloped morphology to the tip of the acromion with appearance of narrowing of the humeral acromial distance (4.5 mm measured from the tip of the acromion to the greater tuberosity). Soft tissues: The visualized hemithorax is unremarkable. No soft tissue swelling. IMPRESSION: 1. Status post left shoulder hemiarthroplasty. 2. Probable narrowing of the humeral acromial distance as the possible cause for impingement symptoms. RADIA
== END 2019-03-15 23:59 | disposition home or self-care (01) ==
LOC: DI.WCP 15:13
PROVIDERS: ATTEND Physician Assistant Medical
DX: M75.42 Impingement syndrome of left shoulder (principal); Z96.612 Presence of left artificial shoulder joint; E11.9 Type 2 diabetes mellitus without complications
CPT/HCPCS: 36415; 84443

== ENCOUNTER 2019-06-16 07:00 | Outpatient (CLI) | payer MEDICARE, OTHER ==
[2019-06-16 18:45] LABS: HEMOGLOBIN A1C 0.52 g/dL; HEMOGLOBIN A1C % 5.8 % (4.6-6.2)
[2019-06-16 18:51] LABS: CREATININE,URINE 309.5 mg/dL; MICROALBUM/CREATININE RATIO,UR 26.8 ug/mg (<30.0); MICROALBUMIN,URINE 8.3 mg/dL (0-300.0)
== END 2019-06-16 23:59 | disposition home or self-care (01) ==
LOC: LAB.WCP 07:00
PROVIDERS: ATTEND Physician Assistant Medical
DX: E11.9 Type 2 diabetes mellitus without complications (principal); F41.9 Anxiety disorder, unspecified; F90.0 Attention-deficit hyperactivity disorder, predominantly inattentive type; F51.04 Psychophysiologic insomnia; F32.9 Major depressive disorder, single episode, unspecified
CPT/HCPCS: 36415; 82043; 82570; 83036; 84443

== ENCOUNTER 2019-06-17 15:26 | Outpatient (CLI) | payer MEDICARE, OTHER ==
--- NOTE | 2019-06-18 08:44 | XRAY Report ---
Reason: RIGHT FOOT PAIN Procedure Date: 06/17/2019 Accession Number: [id number] / [id number] Procedure: WCP - Foot 3 View RT CPT Code: Final Report FULL RESULT: EXAM: RIGHT FOOT RADIOGRAPHY, 3 VIEWS EXAM DATE: 06/17/2019 03:26 PM. CLINICAL HISTORY: 68-year-old female post twisting injury right foot 3 weeks ago, with continued pain and swelling. COMPARISON: None. TECHNIQUE: Frontal, oblique and lateral views. FINDINGS: Bones: Normal. No fractures or bone lesions. Joints: Minor degenerative arthritic changes in the IP joints. No subluxations or joint effusion. Soft Tissues: Mild generalized soft tissue swelling. No soft tissue gas or foreign body. IMPRESSION: Mild soft tissue swelling. No fracture or joint injury. Minor osteoarthritic changes in the IP joints diffusely. RADIA
== END 2019-06-17 23:59 | disposition home or self-care (01) ==
LOC: DI.WCP 15:26
PROVIDERS: ATTEND Physician Assistant Medical
DX: M19.071 Primary osteoarthritis, right ankle and foot (principal)

== ENCOUNTER 2020-01-12 07:00 | Outpatient (CLI) | payer MEDICARE, OTHER | END 2020-01-12 23:59 | disposition home or self-care (01) | LOC: LAB.R 07:00 | PROVIDERS: ATTEND Family Medicine | DX: R30.0 Dysuria (principal) | CPT/HCPCS: 87086 ==

== ENCOUNTER 2020-07-26 10:15 | Outpatient (CLI) | payer MEDICARE, OTHER | END 2020-07-26 10:16 | disposition home or self-care (01) | LOC: DI 10:15 | PROVIDERS: ATTEND Physician Assistant Medical | DX: R01.1 Cardiac murmur, unspecified (principal); I34.0 Nonrheumatic mitral (valve) insufficiency | CPT/HCPCS: 93306 ==

== ENCOUNTER 2020-08-01 14:58 | Outpatient (CLI) | payer MEDICARE, OTHER ==
[2020-08-01 17:42] LABS: BASOPHILS % (AUTO) 0.7 %; EOSINOPHILS # (AUTO) 0.2 10^3/uL (0.0-0.7); EOSINOPHILS % (AUTO) 3.8 %; HCT - HEMATOCRIT 37.9 % (37.0-47.0); HGB - HEMOGLOBIN 11.6 g/dL (12.0-16.0); LYMPHOCYTES # (AUTO) 1.6 10^3/uL (1.5-3.5); LYMPHOCYTES % (AUTO) 29.1 %; MEAN CORPUSCULAR HEMOGLOBIN 28.1 pg (27.0-31.0); MEAN CORPUSCULAR HGB CONC 30.6 g/dL (32.0-36.0); MEAN CORPUSCULAR VOLUME 91.8 fL (81.0-99.0); MEAN PLATELET VOLUME 10.8 fL (7.9-10.8); MONOCYTES # (AUTO) 0.3 10^3/uL (0.0-1.0); MONOCYTES % (AUTO) 5.2 %; NEUTROPHILS # (AUTO) 3.4 10^3/uL (1.5-6.6); PLT - PLATELET COUNT 218 10^3/uL (130-450); RED BLOOD COUNT 4.13 10^6/uL (4.20-5.40); RED CELL DISTRIBUTION WIDTH 13.4 % (12.0-15.0); WHITE BLOOD COUNT 5.5 x10^3/uL (4.8-10.8)
[2020-08-01 18:09] LABS: ALBUMIN 3.9 g/dL (3.2-5.5); ALBUMIN/GLOBULIN RATIO 1.1 (1.0-2.2); ALKALINE PHOSPHATASE 56 IU/L (42-121); ALT ALANINE AMINOTRANSFERASE 19 IU/L (10-60); AST ASPARTATE AMINOTRANSFERASE 23 IU/L (10-42); BILIRUBIN,TOTAL 0.4 mg/dL (0.2-1.0); BUN - BLOOD UREA NITROGEN 17 mg/dL (6-20); CALCIUM 9.2 mg/dL (8.5-10.3); CARBON DIOXIDE - CO2 27 mmol/L (21-32); CHLORIDE 103 mmol/L (101-111); CHOL/HDL RATIO 2.5 (<4.4); CHOLESTEROL 157 mg/dL; CREATININE 0.9 mg/dL (0.4-1.0); GFR - MDRD 62 (>89); GLUCOSE 97 mg/dL (70-100); HDL CHOLESTEROL 63 mg/dL; LDL CHOLESTEROL,CALCULATED 75 mg/dL; LDL/HDL RATIO 1.2 (<4.4); POTASSIUM 4.4 mmol/L (3.5-5.0); SODIUM 138 mmol/L (135-145); TOTAL PROTEIN 7.4 g/dL (6.7-8.2); TRIGLYCERIDES 96 mg/dL; VLDL CHOLESTEROL 19 mg/dL
[2020-08-01 18:13] LABS: CRP - C-REACTIVE PROTEIN < 1.0 mg/dL (0-1.0); RHEUMATOID FACTOR NEGATIVE (Negative)
[2020-08-03 17:16] LABS: ANA SCREEN NEGATIVE (NEGATIVE)
== END 2020-08-01 23:59 | disposition home or self-care (01) ==
LOC: LAB.WCP 14:58
PROVIDERS: ATTEND Physician Assistant Medical
DX: E78.5 Hyperlipidemia, unspecified (principal); J45.909 Unspecified asthma, uncomplicated; M25.531 Pain in right wrist
CPT/HCPCS: 36415; 80053; 80061; 83721; 85025; 85651; 86038; 86140; 86225; 86430

== ENCOUNTER 2020-08-21 14:42 | Outpatient (CLI) | payer MEDICARE, OTHER ==
[2020-08-23 20:41] VITALS: BP 166/82
--- NOTE | 2020-08-23 20:41 | SLEEP CARE CONSULTATION ---
Information from patient questionnaire entered by Erika Painting. I have reviewed and concur with the information entered by Erika Painting. This document represents the service I personally performed and the decisions made by me, Saige Sullivan MD, [facility]. History of Present Illness Service Date and Time: 08/21/2020 1442 Reason for Visit: New patient, Previously diagnosed sleep apnea (severe - AHI - 35.6 in 2007), sleep apnea on CPAP therapy, Re-establish care (last seen 08/2012) Chief Complaint: reports: Other (Update supplies) Usual bedtime: 11 pm Time it takes to fall asleep: 60 minutes or so Snores at night: Yes Observed to quit breathing while asleep: Yes Sleeps alone due to snoring: No Number of times waking at night: 2 Reasons for waking at night: reports: Snoring, Gasping for air, Pain, Bathroom Toss, Turn, or Twitch while sleeping: Yes Recalls having dreams: Yes Usually gets out of bed at: 6-11 am Feels refreshed in the morning: Yes Morning headache: Yes (sometimes) Sleepy or fatigued during the day: No Ever fallen asleep while driving: No Takes day naps: Yes Prior sleep studies: Yes Year and Where: 2007 - [facility] Type of Sleep Study: Polysomnography Additional HPI information: HPI: Ms. Meza returned with her for follow up after last seen about 10 years ago. She was diagnosed here with severe obstructive sleep apnea- hypopnea (AHI of 35.6 and neeru oxygen saturation of 77%). She continues to use her old Respironics M-Series CPAP regularly. The credit card-type memory card cannot be downloaded. The pressure is set at 18 cmH2O. She does not have a heated humidifier. She wears a Respironics True Blue nasal mask. She gets her supplies through [facility]. - Parasomnia Symptoms Ever been unable to move upon waking from sleep: No Walks in sleep: Yes Talks in sleep: Yes Ever acted out dreams in sleep: Yes Ever felt weak in the knees when startled or emotional: Yes Bothered by creepy, crawly, restless sensations in legs: Yes (sometimes) Problems with memory or concentration: Yes Subjective Initial [place] Sleepiness Scale score: 17 (in 2007) Current [place] Sleepiness Scale score: 10 Past Medical History Past Medical History: reports: Hypertension, Claustrophobia, Diabetes, Arthritis, Anemia, Anxiety, Asthma, GERD Social History The patient's occupation is a Retired. Patient is and lives in [place]. Have you smoked in the past 12 months: No Alcohol use: No Caffeine use: Yes Caffeine amount and frequency: 1 cup every few days Family History Family history of sleep disordered breathing: Yes Family Hx Sleep Apnea: Mother: Sleep apnea - Untreated, Father: Sleep apnea - Untreated, Sibling: Sleep apnea - Untreated, Grandparent: Sleep apnea - Untreated, Other: Snoring (niece), Sleep apnea - Untreated Allergies and Home Medications Drug allergies reviewed: Yes Home medication list reviewed: Yes Review of Systems Weight gain over past 5 years: 15 Weight loss over past 5 years: 28 Cardiovascular: reports: high blood pressure Respiratory: reports: shortness of breath, wheeze, other (asthma) Gastrointestinal: reports: heartburn, other (IBC) Urinary: reports: incontinence, frequency Neurological: reports: headaches Psychiatric: reports: anxiety, claustrophobia Ear/Nose/Throat: reports: sinus problems, dry mouth/throat (when I sleep) Musculoskeletal: reports: joint pain, neck pain, back pain Immunologic: reports: sneezing, allergies to food or environment (bees) Physical Exam Vital signs obtained and entered by: Dr. Sullivan Blood Pressure: 166/82 Cuff size: regular Heart Rate: 75 O2 Saturation: 98 Height: 5 ft 5 in Weight: 230 lb Body Mass Index: 38.2 BMI Classification: Obese Neck circumference: 15 Mood/affect: Normal HEENT: No craniofacial malformation Impression and Plan IMPRESSION: 1. Obstructive Sleep Apnea-Hypopnea Syndrome, severe, with the patient continuing to have good treatment compliance (the actual compliance cannot be downloaded due her memory card being of the old style). She reports significant improvement on the treatment. Because the CPAP is now older than t he useful life of 5 years, I will order the patient a new one and make it an autoCPAP set between 12 and 18 cmH2O. She should look into the newer nasal masks. PLAN: 1. Prescription made for an autoCPAP, heated humidifier, and related supplies. 2. Attempt to lose some weight. 3. Try Respironics DreamWear nasal cushion mask and ResMed N30i mask. 4. Return for follow up after one month of using the CPAP. Follow up recommended for: Weight management Visit Type: In Office Other Participants: Spouse/Significant Other Time Spent with Patient (minutes): 15 Provider Statement: I spent 100% of the Face to Face Visit with the patient with greater than 50% spent counseling the patient and coordination of care.
== END 2020-08-21 14:43 | disposition home or self-care (01) ==
LOC: SC 14:42
PROVIDERS: ATTEND Internal Medicine Pulmonary Disease
DX: G47.33 Obstructive sleep apnea (adult) (pediatric) (principal); E66.9 Obesity, unspecified; Z68.38 Body mass index [BMI] 38.0-38.9, adult
CPT/HCPCS: 99202; G0463; 99212

== ENCOUNTER 2020-09-13 08:00 | Outpatient (CLI) | payer MEDICARE, OTHER ==
[2020-09-13 18:57] LABS: THYROID STIMULATING HORMONE 0.95 uIU/mL (0.34-5.60)
[2020-09-13 19:11] LABS: CREATININE,URINE 342.4 mg/dL; MICROALBUM/CREATININE RATIO,UR 76.2 ug/mg (<30.0); MICROALBUMIN,URINE 26.1 mg/dL (0-300.0)
[2020-09-13 19:58] LABS: ESTIMATED AVERAGE GLUCOSE 117 mg/dL (70-100); HEMOGLOBIN A1c% 5.7 % (4.27-6.07)
== END 2020-09-13 23:59 | disposition home or self-care (01) ==
LOC: LAB.WCP 08:00
PROVIDERS: ATTEND Physician Assistant Medical
DX: E11.9 Type 2 diabetes mellitus without complications (principal)
CPT/HCPCS: 36415; 82043; 82570; 83036; 84443

== ENCOUNTER 2020-10-03 08:00 | Outpatient (CLI) | payer MEDICARE, OTHER | END 2020-10-03 23:59 | disposition home or self-care (01) | LOC: LAB.N 08:00 | PROVIDERS: ATTEND Physician Assistant Medical | DX: R30.0 Dysuria (principal) | CPT/HCPCS: 87077; 87086; 87181 ==

== ENCOUNTER 2020-11-13 13:28 | Outpatient (CLI) | payer MEDICARE, OTHER ==
--- NOTE | 2020-11-13 16:31 | SLEEP CARE CONSULTATION ---
Information from patient questionnaire entered by Erika Painting. I have reviewed and concur with the information entered by Erika Painting. This document represents the service I personally performed and the decisions made by me, Saige Sullivan MD, [facility]. History of Present Illness Service Date and Time: 11/13/2020 1328 Previous diagnosis: Severe, Obstructive Sleep Apnea-Hypopnea Syndrome AHI: 35.6 (in 2007) Reason for follow up: first compliance after device update Equipment type: CPAP Equipment obtained from: Other ([facility]) Mask style: Nasal Prior sleep studies: Yes Year and Where: 2007 - [facility] Type of Sleep Study: Polysomnography HPI additional information: HPI: Ms. Meza returned with her for follow up after she was prescribed a new autoCPAP 2 months ago. She was diagnosed here with severe obstructive sleep apnea-hypopnea (AHI of 35.6 and neeru oxygen saturation of 77%). Her new device is a DreamStation 2 autoCPAP set at 12 18 cmH2O (her old machine was set at 18 cmH2O). The compliance report shows usage in 30 out of the past 30 night, averaging 9.7 hours a night. The residual AHI is 9.7. Average time in large leak per day is 5 minutes. The 90th percentile pressure is 17 cmH 2O. She wears a nasal mask. CPAP Compliance Data - Data Reviewed with Patient Average duration of nightly device use: 9 hr 42 min Compliance rate %: 100 Current pressure setting (cmH2O): 12-18 Humidity settin Heated hose settin Average residual AHI: 9.7 Average large leak: 4 min 58 sec Subjective Patient concerns: reports: nasal congestion, dry mouth, nose, throat Current pressure setting perceived as: comfortable Initial Craig Sleepiness Scale score: 17 (in 2007) Current Craig Sleepiness Scale score: 5 Allergies and Home Medications Drug allergies reviewed: Yes Home medication list reviewed: Yes Review of Systems Review of systems same as previous: Yes Physical Exam Height: 5 ft 5 in Weight: 225 lb Body Mass Index: 37.4 BMI Classification: Obese Impression and Plan IMPRESSION: 1. Obstructive Sleep Apnea-Hypopnea Syndrome, severe, with the patient doing well on her new device. The current pressure setting appears slightly ineffective but comfortable. I will raise the pressure a little. She would the auto OFF to be turned so that the machine would not keep on running while she goes to the bathroom at night. PLAN: 1. AutoCPAP raised to 14-20 cmH2O via the modem. Auto OFF turned on. 2. Attempt to lose some weight. 3. Try Respironics DreamWear nasal cushion mask and ResMed N30i mask. 4. Return for follow up in a year or earlier if there is any problem. Counseling Topics: Weight control Follow up with Sleep Care in: 1 year Visit Type: In Office Provider Statement: I spent 100% of the Face to Face Visit with the patient with greater than 50% spent counseling the patient and coordination of care.
== END 2020-11-13 13:29 | disposition home or self-care (01) ==
LOC: SC 13:28
PROVIDERS: ATTEND Internal Medicine Pulmonary Disease
DX: G47.33 Obstructive sleep apnea (adult) (pediatric) (principal); E66.9 Obesity, unspecified; Z68.37 Body mass index [BMI] 37.0-37.9, adult
CPT/HCPCS: 99212; G0463

== ENCOUNTER 2021-01-24 14:35 | Outpatient (CLI) | payer MEDICARE, OTHER ==
[2021-01-24 18:26] LABS: ALBUMIN/GLOBULIN RATIO 1.2 (1.0-2.2); ALKALINE PHOSPHATASE 49 IU/L (42-121); ALT ALANINE AMINOTRANSFERASE 15 IU/L (10-60); AST ASPARTATE AMINOTRANSFERASE 19 IU/L (10-42); BILIRUBIN,TOTAL 0.6 mg/dL (0.2-1.0); BUN - BLOOD UREA NITROGEN 16 mg/dL (6-20); CALCIUM 9.3 mg/dL (8.5-10.3); CARBON DIOXIDE - CO2 28 mmol/L (21-32); CHLORIDE 103 mmol/L (101-111); CHOL/HDL RATIO 3.3 (<4.4); CHOLESTEROL 218 mg/dL; CREATININE 0.9 mg/dL (0.4-1.0); GFR - MDRD 62 (>89); GLUCOSE 111 mg/dL (70-100); HDL CHOLESTEROL 67 mg/dL; LDL CHOLESTEROL,CALCULATED 133 mg/dL; POTASSIUM 4.7 mmol/L (3.5-5.0); SODIUM 140 mmol/L (135-145); TOTAL PROTEIN 7.3 g/dL (6.7-8.2); TRIGLYCERIDES 89 mg/dL; VLDL CHOLESTEROL 18 mg/dL
[2021-01-24 20:57] LABS: ESTIMATED AVERAGE GLUCOSE 126 mg/dL (70-100)
== END 2021-01-24 23:59 | disposition home or self-care (01) ==
LOC: LAB.WCP 14:35
PROVIDERS: ATTEND Physician Assistant Medical
DX: E11.9 Type 2 diabetes mellitus without complications (principal)
CPT/HCPCS: 36415; 80053; 80061; 83036; 83721

== ENCOUNTER 2021-04-18 14:33 | Outpatient (CLI) | payer MEDICARE, OTHER ==
[2021-04-18 18:15] LABS: ALBUMIN/GLOBULIN RATIO 1.2 (1.0-2.2); ALKALINE PHOSPHATASE 57 IU/L (42-121); ALT ALANINE AMINOTRANSFERASE 17 IU/L (10-60); AST ASPARTATE AMINOTRANSFERASE 20 IU/L (10-42); BILIRUBIN,TOTAL 0.3 mg/dL (0.2-1.0); BUN - BLOOD UREA NITROGEN 18 mg/dL (6-20); CALCIUM 9.2 mg/dL (8.5-10.3); CARBON DIOXIDE - CO2 27 mmol/L (21-32); CHLORIDE 101 mmol/L (101-111); CHOL/HDL RATIO 2.5 (<4.4); CHOLESTEROL 174 mg/dL; CREATININE 0.9 mg/dL (0.4-1.0); GFR - MDRD 62 (>89); GLUCOSE 106 mg/dL (70-100); HDL CHOLESTEROL 70 mg/dL; LDL CHOLESTEROL,CALCULATED 88 mg/dL; LDL/HDL RATIO 1.3 (<4.4); POTASSIUM 4.4 mmol/L (3.5-5.0); SODIUM 138 mmol/L (135-145); TOTAL PROTEIN 7.4 g/dL (6.7-8.2); TRIGLYCERIDES 79 mg/dL; VLDL CHOLESTEROL 16 mg/dL
[2021-04-18 20:42] LABS: ESTIMATED AVERAGE GLUCOSE 126 mg/dL (70-100)
== END 2021-04-18 23:59 | disposition home or self-care (01) ==
LOC: LAB.WCP 14:33
PROVIDERS: ATTEND Physician Assistant Medical
DX: E11.9 Type 2 diabetes mellitus without complications (principal)
CPT/HCPCS: 36415; 80053; 80061; 83036; 83721

== ENCOUNTER 2021-08-24 14:03 | Outpatient (CLI) | payer MEDICARE, OTHER ==
[2021-08-24 18:30] LABS: ALBUMIN 3.9 g/dL (3.2-5.5); ALBUMIN/GLOBULIN RATIO 1.1 (1.0-2.2); BILIRUBIN,TOTAL 0.3 mg/dL (0.2-1.0); CALCIUM 9.4 mg/dL (8.5-10.3); CREATININE 0.9 mg/dL (0.4-1.0); POTASSIUM 4.5 mmol/L (3.5-5.0); TOTAL PROTEIN 7.5 g/dL (6.7-8.2)
[2021-08-24 19:29] LABS: ESTIMATED AVERAGE GLUCOSE 123 mg/dL (70-100); HEMOGLOBIN A1c% 5.9 % (4.27-6.07)
== END 2021-08-24 14:04 | disposition home or self-care (01) ==
LOC: LAB.N 14:03
PROVIDERS: ATTEND Physician Assistant Medical
DX: E11.9 Type 2 diabetes mellitus without complications (principal)
CPT/HCPCS: 36415; 80053; 81599; 83036

== ENCOUNTER 2022-03-01 09:56 | Outpatient (CLI) | payer MEDICARE, OTHER ==
[2022-03-01 12:35] LABS: ALBUMIN 4.3 g/dL (3.2-5.5); ALBUMIN/GLOBULIN RATIO 1.2 (1.0-2.2); ALKALINE PHOSPHATASE 68 IU/L (42-121); ALT ALANINE AMINOTRANSFERASE 17 IU/L (10-60); AST ASPARTATE AMINOTRANSFERASE 19 IU/L (10-42); BILIRUBIN,TOTAL 0.4 mg/dL (0.2-1.0); BUN - BLOOD UREA NITROGEN 22 mg/dL (6-20); CALCIUM 9.8 mg/dL (8.5-10.3); CARBON DIOXIDE - CO2 31 mmol/L (21-32); CHLORIDE 99 mmol/L (101-111); CHOL/HDL RATIO 2.7 (<4.4); CHOLESTEROL 178 mg/dL; CREATININE 1.1 mg/dL (0.4-1.0); GFR - MDRD 49 (>89); GLUCOSE 119 mg/dL (70-100); HDL CHOLESTEROL 66 mg/dL; LDL CHOLESTEROL,CALCULATED 86 mg/dL; LDL/HDL RATIO 1.3 (<4.4); POTASSIUM 4.4 mmol/L (3.5-5.0); SODIUM 138 mmol/L (135-145); TRIGLYCERIDES 132 mg/dL; VLDL CHOLESTEROL 26 mg/dL
[2022-03-01 12:42] LABS: ESTIMATED AVERAGE GLUCOSE 131 mg/dL (70-100); HEMOGLOBIN A1c% 6.2 % (4.27-6.07)
== END 2022-03-01 09:57 | disposition home or self-care (01) ==
LOC: LAB.N 09:56
PROVIDERS: ATTEND Physician Assistant Medical
DX: E11.9 Type 2 diabetes mellitus without complications (principal)
CPT/HCPCS: 36415; 80053; 80061; 83036; 83721

== ENCOUNTER 2022-08-28 14:52 | Outpatient (CLI) | payer MEDICARE, OTHER ==
[2022-08-28 17:58] LABS: CALCIUM 9.5 mg/dL (8.5-10.3); POTASSIUM 4.4 mmol/L (3.5-5.0)
[2022-08-28 20:53] LABS: ESTIMATED AVERAGE GLUCOSE 134 mg/dL (70-100); HEMOGLOBIN A1c% 6.3 % (4.27-6.07)
== END 2022-08-28 14:53 | disposition home or self-care (01) ==
LOC: LAB.N 14:52
PROVIDERS: ATTEND Physician Assistant Medical
DX: E11.9 Type 2 diabetes mellitus without complications (principal)
CPT/HCPCS: 36415; 80048; 83036

== ENCOUNTER 2022-11-28 15:40 | Outpatient (CLI) | payer MEDICARE, OTHER | END 2022-11-28 15:41 | disposition home or self-care (01) | LOC: LAB.N 15:40 | PROVIDERS: ATTEND Physician Assistant Medical | DX: Z53.9 Procedure and treatment not carried out, unspecified reason (principal) ==

== ENCOUNTER 2022-12-03 15:50 | Outpatient (CLI) | payer MEDICARE, OTHER ==
--- NOTE | 2022-12-03 17:14 | Ultrasound Report ---
PROCEDURE: Duplex Ext Veins Left INDICATIONS: LEFT LEG EDEMA TECHNIQUE: Real-time imaging, as well as color and pulse Doppler interrogation, were performed of the lower extr emity deep veins from the inguinal ligament to the popliteal fossa. COMPARISON: None. FINDINGS: There is thrombus identified within the left deep veins extending from the iliac through th e popliteal. Posterior tibial and peroneal veins are suboptimally visualized. However, very small are as of thrombus cannot be excluded. IMPRESSION: Deep venous thrombosis as above. The above findings were communicated by the spreading machine operator to Becki Ross on 12/03/2022 at 4:30 PM. Reviewed by: Glory Ackerman MD on 12/03/2022 5:13 PM PDT Approved by: Glory Ackerman MD on 12/03/2022 5:13 PM PDT Station ID: [id number]
== END 2022-12-03 15:51 | disposition home or self-care (01) ==
LOC: DI 15:50
PROVIDERS: ATTEND Physician Assistant Medical
DX: I82.432 Acute embolism and thrombosis of left popliteal vein (principal); I82.422 Acute embolism and thrombosis of left iliac vein

== ENCOUNTER 2022-12-17 13:18 | Outpatient (CLI) | payer MEDICARE, OTHER ==
[2022-12-17 18:12] LABS: ALBUMIN 4.1 g/dL (3.2-5.5); ALBUMIN/GLOBULIN RATIO 1.2 (1.0-2.2); ALKALINE PHOSPHATASE 63 IU/L (42-121); ALT ALANINE AMINOTRANSFERASE 13 IU/L (10-60); AST ASPARTATE AMINOTRANSFERASE 17 IU/L (10-42); BILIRUBIN,TOTAL 0.3 mg/dL (0.2-1.0); BUN - BLOOD UREA NITROGEN 21 mg/dL (6-20); CALCIUM 9.6 mg/dL (8.5-10.3); CARBON DIOXIDE - CO2 31 mmol/L (21-32); CHLORIDE 103 mmol/L (101-111); CHOL/HDL RATIO 2.8 (<4.4); CHOLESTEROL 154 mg/dL; CREATININE 1.4 mg/dL (0.6-1.3); GFR - MDRD 37 (>89); GLUCOSE 103 mg/dL (74-104); HDL CHOLESTEROL 56 mg/dL; LDL CHOLESTEROL,CALCULATED 72 mg/dL; LDL/HDL RATIO 1.3 (<4.4); POTASSIUM 4.8 mmol/L (3.5-4.5); SODIUM 139 mmol/L (135-145); TOTAL PROTEIN 7.6 g/dL (6.4-8.9); TRIGLYCERIDES 131 mg/dL (48-352); VLDL CHOLESTEROL 26 mg/dL
[2022-12-17 21:39] LABS: ESTIMATED AVERAGE GLUCOSE 134 mg/dL (70-100); HEMOGLOBIN A1c% 6.3 % (4.27-6.07)
== END 2022-12-17 13:19 | disposition home or self-care (01) ==
LOC: LAB.N 13:18
PROVIDERS: ATTEND Physician Assistant Medical
DX: E11.9 Type 2 diabetes mellitus without complications (principal)
CPT/HCPCS: 36415; 80053; 80061; 83036; 83721

== ENCOUNTER 2023-07-24 13:59 | Outpatient (CLI) | payer MEDICARE, OTHER ==
--- NOTE | 2023-07-24 16:35 | DEXA Report ---
PROCEDURE: Dexa Spine and/or Hip INDICATIONS: POST MENOPAUSAL TECHNIQUE: Dual energy x-ray absorptiometry (DXA) was performed on a Albumatic System. Regions measur ed are the AP Spine, femoral neck, and if needed forearm. COMPARISON: DEXA 07/12/2016. FINDINGS: Lumbar Spine: L2-L4 Bone Mineral Density: 1.708 g/cm/cm, T score: 4.2. Since the most recent prior study, there has been a statistically significant increase in bone mineral density by 19.5 percent. Left Femoral Neck: Bone Mineral Density: 0.912 g/cm/cm, T score: -0.9. Left Hip: Bone Mineral Density: 0.931 g/cm/cm, T score: -0.6. Since the most recent prior study, there has been a statistically significant increase in bone mineral density by 5.8 percent. (T score greater or equal to -1.0: NORMAL) (T score from -1.1 to -2.4: OSTEOPENIA) (T score less than or equal to -2.5 to: OSTEOPOROSIS) Impression: By WHO criteria, this patient has normal bone density. Interval statistical increase in bone mineral density of the lumbar spine. Interval statistical increase in bone mineral density of the hip. Patients with diagnosis of osteoporosis or osteopenia should have regular bone mineral density assess ment. For those eligible for Medicare, routine testing is allowed once every 2 years. Testing frequ ency can be increased for patients who have rapidly progressing disease or for those who are receivin g medical therapy to restore bone mass. Reviewed by: Jake Diaz MD on 07/24/2023 4:33 PM PDT Approved by: Jake Diaz MD on 07/24/2023 4:33 PM PDT Station ID: [id number]
== END 2023-07-24 14:00 | disposition home or self-care (01) ==
LOC: DI 13:59
PROVIDERS: ATTEND Physician Assistant Medical
DX: Z78.0 Asymptomatic menopausal state (principal)

== ENCOUNTER 2023-08-12 14:26 | Outpatient (CLI) | payer MEDICARE, OTHER ==
[2023-08-12 14:51] LABS: CALCIUM 9.9 mg/dL (8.5-10.3); POTASSIUM 4.4 mmol/L (3.5-4.5)
[2023-08-12 20:10] LABS: ESTIMATED AVERAGE GLUCOSE 134 mg/dL (70-100); HEMOGLOBIN A1c% 6.3 % (4.27-6.07)
== END 2023-08-12 14:27 | disposition home or self-care (01) ==
LOC: LAB 14:26
PROVIDERS: ATTEND Physician Assistant Medical
DX: E11.9 Type 2 diabetes mellitus without complications (principal)
CPT/HCPCS: 36415; 80048; 83036